=== PATIENT | male | born 1965 | race Caucasian/White ===

== ENCOUNTER 2017-02-20 09:47 | Day surgery (SDC) | payer OTHER ==
[~2017-02-20] VITALS: Ht 157.5 cm; Wt 60.0 kg
[2017-02-20 10:20] VITALS: Ht 157.5 cm; Wt 60.0 kg
[2017-02-20 10:44] VITALS: BP 139/67; PULSE 75; RESP 19
--- NOTE | 2017-02-20 12:11 | OPPN ---
Date/Time of Note Date/Time of Note DATE: 02/20/17 TIME: 12:09 Proc Note GI Procedure Date 02/20/17 Indication: screening/surveillance Pre-procedure Diagnosis Screening colonoscopy Post-procedure Diagnosis Polyp removed successfully by cold snare technique Diverticulosis Procedure Performed: Colonoscopy Surgeon see signature line Pugger Helper none Anesthesia Type: moderate sedation Tourniquet Time none EBL none Transfusion required none Biopsy 1: None Polyp 1: Removed and sent for analysis at 40 cm Grafts/Implants none Tubes/Drains none Complication(s) none Disposition: PACU Procedure Description Dictated MICAH AMAYA MD Feb 20, 2017 12:11
[2017-02-20] MEDS ORDERED: FENTAnyl 50 MCG/ML VIAL ONE (12:13)
[2017-02-20] MEDS ORDERED: MIDAZOLAM 1 MG/ML 2 ML INJ ONE ×3 (12:14)
[2017-02-20 12:51] VITALS: BP 109/56; PULSE 61; RESP 15
--- NOTE | 2017-02-20 19:45 | GILP ---
DATE OF PROCEDURE: PROCEDURE: Colonoscopy with polypectomy. INDICATION: A 52-year-old female undergoing this procedure for colon cancer screening. The risk of the procedure, related and unrelated complications, anesthetic risks, ____ sedative risks, alternat dane discussed and informed consent was obtained. DESCRIPTION OF PROCEDURE: The patient was brought to the GI lab, sedated with 5 mg of Versed and 10 0 mcg of fentanyl. After optimal sedation, scope was passed with much ease into rectum. At 40 cm p edunculated polyp was identified which was removed with cold snare. The polyp size was 1 cm. Polyp was retrieved and sent for analysis. There were diverticula in the vicinity. Scope was advanced a ll the way into the cecum. Appendiceal orifice and IC valve identified. While coming out, mucosa t horoughly inspected. The rest of the colon was normal. There was an inverted diverticulum in the a scending colon. While coming out, mucosa was thoroughly inspected. The rest of the colon appeared normal. IMPRESSION: 1. Normal findings all the way into the cecum. 2. Polyp at 40 cm, successfully removed by cold snare technique. 3. Diverticulosis. 4. Clarity and cleanliness was good. PLAN: Review histopathology of the polyp, the patient will need repeat colonoscopy in 5 years and s rozina on high fiber diet. Dictated By: MICAH HSU/ESSIE Conf#: [id number] DID#: [id number]
== END 2017-02-20 14:45 | disposition home or self-care (01) ==
LOC: GIL 09:47 → EDBD 11:00 → GIL 14:45
PROVIDERS: ATTEND Internal Medicine Gastroenterology
DX: Z12.11 Encounter for screening for malignant neoplasm of colon (principal); D12.6 Benign neoplasm of colon, unspecified; K57.90 Diverticulosis of intestine, part unspecified, without perforation or abscess without bleeding
CPT/HCPCS: 45385; 88305; J2250; J3010; Z7610